=== PATIENT | female | born 1955 | race African-American/Black ===

== ENCOUNTER → 2020-03-12 | Outpatient (CLI) | payer BC ==
--- NOTE | 2020-03-12 16:31 | RAD ---
MR#: [id number] Date of Study: 03/12/2020 Ordering Physician: JORDYN HOUSER, Referring Physician: ACOSTA MAZA Tech: RT Ai (R) (N) APPROVED REPORT Test Type: Exercise Stress Nurse/Tech: Ade Levine RN Test Indications: Chest Pain Cardiac History: See EMR. Medications: See EMR. Medical History: See EMR. Resting ECG: SR Resting Heart Rate: 69 bpm Resting Blood Pressure: 137/76mmHg Pretest Chest Pain: None Nurse/Tech Notes Lungs CTA, Heart tones regular. Consent: The procedure was explained to the patient in lay terms. Informed consent was witnessed. Bishnu eout was entered into [employer]. History and Stress Test performed by RT Ai (R) (N) Stress Symptoms No chest pain or symptoms. POST EXERCISE Reason for Termination: Reached target heart rate Target HR: Yes Max HR: 147 bpm 113% of Maximum Predicted HR: 130 bpm Exercise duration: 5:00 min:sec, 2 Stage Exercise capacity: 7.0METs Max Blood Pressure: 169/81mmHg Blood Pressure response to exercise: Normal blood pressure response during stress. Heart Rate response to exercise: WNL Chest Pain: No. Arrhythmia: No. ST Change: No. INTERPRETATION Stress EKG Conclusion: No evidence of stress induced EKG changes to suggest ischemia. Imaging Protocol IMAGE PROTOCOL: Rest Tc-99m/stress Tc-99m 1 day Rest: Stress: Viability: Radiopharm.Tc99m LpfrctdoeUn34v Sestamibi Lcpf28xHw 34mCi Duration 15min. 15min. Img Date 03/12/2020 03/12/2020 Inj-Img Rxwh25toc. 60min. Rest Admin Site:IV - Left HandAdministrator:RT Ai (Martha)(N) Stress Admin Site: IV - Left HandAdministrator: RT Ai (Martha)(N) STRESS DATA End Diast. Vol.53.0mlLVEDV index BSA27.0ml End Syst. Vol.12.0mlLVESV index BSA6.0ml Myocardial Mass94.0gEject. Dwbjirwc11.0% Stress Scores Regional WT0.00Summed WT0.00 Regional WM0.00Summed WM1.00 The rest and stress images show normal perfusion, normal contraction and thickening. LV Perf. Quant 17 Seg. SSS0.00 17 Seg. SRS0.00 17 Seg. SDS0.00 Stress Defect Extent (% LAD)0.00Rest Defect Extent (% LAD)0.00Rev. Defect Extent (% LAD)0.00 Stress Defect Extent (% LCX) 0.00Rest Defect Extent (% LCX)0.00Rev. Defect Extent (% LCX)0.00 Stress Defect Extent (% RCA)0.00Rest Defect Extent (% RCA)0.00Rev. Defect Extent (% RCA)0.00 Stress Defect Extent (% TOÑA)0.00Rest Defect Extent (% TOÑA)0.00Rev. Defect Extent (% TOÑA)0.00 Other Information Quality:Average Risk Assessment: Low Risk Conclusion 1. No evidence of EKG changes with stress testing. 2. Normal perfusion at stress/rest. 3. Low risk study. 4. EF > 60%. Signed by : Jordyn Houser, Electronically Approved : 03/12/2020 16:31:14
== END ==
LOC: NM 08:27
PROVIDERS: ATTEND Internal Medicine Cardiovascular Disease
DX: I20.8 Other forms of angina pectoris (principal); R07.9 Chest pain, unspecified
CPT/HCPCS: 78452; 93017; A9500